=== PATIENT | male | born 1970 | race Caucasian/White ===

== ENCOUNTER → 2017-04-28 | Outpatient (CLI) | payer OTHER ==
[2017-04-28 16:26] LABS: C-REACTIVE PROTEIN < 0.29 mg/dl (0-0.29)
[2017-04-28 18:38] LABS: LYME DISEASE AB IGG NEG (NEG)
[2017-04-28 18:41] LABS: LYME DISEASE AB IGM NEG (NEG)
== END | disposition home or self-care (01) ==
LOC: C.LAB1850 14:50
PROVIDERS: ATTEND Internal Medicine
DX: M25.50 Pain in unspecified joint (principal)

== ENCOUNTER → 2018-03-01 | Outpatient (CLI) | payer OTHER ==
[2018-03-01 10:55] LABS: HEMOGLOBIN A1C 5.7 % (4.5-5.6)
[2018-03-01 11:06] LABS: ALT/SGPT 23 U/L (12-78); AST/SGOT 14 U/L (15-37); BLOOD UREA NITROGEN 17 mg/dl (7-18); CALCIUM 9.1 mg/dl (8.5-10.1); CARBON DIOXIDE 28 mmol/L (21-32); CHOLESTEROL 196 mg/dl (0-200); GLUCOSE 98 mg/dl (70-99); LDL CHOLESTEROL CALCULATED 135 mg/dl; POTASSIUM 4.3 mmol/L (3.5-5.1); SODIUM 135 mmol/L (136-145)
== END | disposition home or self-care (01) ==
LOC: C.LABBC 08:48
PROVIDERS: ATTEND Internal Medicine
DX: R73.03 Prediabetes (principal); E78.5 Hyperlipidemia, unspecified